=== PATIENT | male | born 1955 | race Caucasian/White ===

== ENCOUNTER 2018-09-27 08:58 | Day surgery (SDC) | payer OTHER, SELFPAY ==
[2018-09-12 12:12] VITALS: BMI 29.7
[2018-09-27] VITALS (13 sets, daily range): BP systolic 102–146; BP diastolic 59–81; PULSE 49–85; RESP 11–18; TEMP 36.2–36.4; O2SAT 96–100; BMI 29.7
--- NOTE | 2018-09-27 | DI.RAD.S_ITS ---
PROCEDURE: XR LUMBAR SPINE 1V INDICATIONS: LAMINECTOMY TECHNIQUE: Single lateral views of the lumbar spine were acquired. COMPARISON: None. FINDINGS: Bones: Operative evaluation, metallic probe overlies the inferior facet joint between L4 and L5. Soft tissues: Overlying bowel gas pattern is normal. No suspicious soft tissue calcifications. IMPRESSION: Successful L4-L5 disc level localization by metallic probe superimposed on the facet joint area of that axial region. Dictated by: John Hamilton M.D. on 09/27/2018 at 17:13 Approved by: John Hamilton M.D. on 09/27/2018 at 17:14
--- NOTE | 2018-09-27 10:42 | PM.PREOP ---
Pre-operative Note Interval Note History & Physical reviewed/Exam performed by Physician: Yes Changes to H&P: No
[2018-09-27] MEDS: LACTATED RINGERS 1,000 ML 42 ML IV ×2 (11:00→13:08)
[2018-09-27] MEDS: CEFAZOLIN 2 GM/100 ML FROZ.PIGGY IV ×2 (11:37→17:31)
--- NOTE | 2018-09-27 11:50 | SUR.OPER ---
Prone on spine table, head in foam head support, padded chest and pelvic supports, gel pad at knees, lower legs supported by pillows; nipples, genitalia and toes free of pressure, arms secured on foam padded arm boards at <90 degrees abduction. Tape over blanket at thigh secured to table.
[2018-09-27] MEDS: BUPIVACAINE 0.25% (PF) 8 ML, fentaNYL 100 MCG INJ (11:54)
[2018-09-27] MEDS: VANCOMYCIN 1,000 MG VIAL 1000 MG TOP (11:54)
[2018-09-27] MEDS: ACETAMINOPHEN IV 1,000 MG/100 ML VIAL 400 MG IV (11:55)
[2018-09-27] MEDS: SODIUM CHLORIDE 0.9% 1,000 ML, GENTAMICIN 80 MG IRR (11:56)
[2018-09-27] MEDS: THROMBIN (BOVINE) 5,000 UNIT VIAL 5000 UNIT TOP (12:00)
--- NOTE | 2018-09-27 13:02 | PM.OP.1 ---
Operative Date/Time/Diagnoses Date of procedure: 09/27/18 Time of procedure: 13:02 Pre-op diagnosis: Lumbar stenosis with radiculopathy Post-op diagnosis: same Procedure & Clinicians Procedure: L3-4, L4-5 laminectomy Placement of epidural catheter Use of microscope Same procedure as scheduled: Yes Indications: [age] year old male with intractable pain from stenosis. They had failed conservative management and requested operative intervention. Risks and benefits of surgery were discussed and appropriate consents were obtained. Surgeon: Christian Enriquez [employer] Logger: Elodia De Los Santos Anesthesia Type: General Operative Notes Findings: None Closure Type: primary Specimen(s): none sent Estimated Blood Loss (mL): 30 Blood products transfused: none Procedure in detail: Patient was brought to the operating room and intubated on the table. They were rolled over on the well-padded prone position on the Eric table. A time-out was performed. Preoperative antibiotics were given. The back was prepped and draped in standard sterile fashion. Using fluoroscopy for localization, a 5 cm incision was made in the midline. We used Bovie to dissect through the lumbodorsal fascia and then subperiosteally dissect the paraspinal muscles off the right side. A marker was placed and x-ray was taken to confirm positioning. We then brought in the microscope. A right-sided laminectomy was performed at L4-5 and L3-4. We carefully depressed the dura and reached across the midline to decompress the opposite side. The neural foramen were cleared out. At the end, we could reach with the ball probe cephalad and caudally across the midline and to the foramen and everything was opened. The wound was irrigated. An epidural catheter was prepared with 8 mL of 0.25% Marcaine and 100 mcg of fentanyl. The dura was carefully depressed and the catheter was advanced 6 cm cephalad underneath remaining lamina without resistance. The fascia was then closed in layers. The epidural catheter was injected without complications. Vancomycin powder was placed in the wound. The superficial and the skin were closed. Sterile dressing was placed. Patient was rolled over extubated brought to recovery room with no complications. Complications: none Condition: stable Disposition: PACU Plan for aftercare: Outpatient with bed. Possible discharge home tonight or tomorrow morning.
[2018-09-27] MEDS: ONDANSETRON 4 MG/2 ML INJ IV (13:30)
--- NOTE | 2018-09-27 13:35 | SUR.PHASEI ---
states nausea resolved.
[2018-09-27] MEDS: HYDROMORPHONE 2 MG INJ 0.5 MG IV ×2 (13:47→13:53)
--- NOTE | 2018-09-27 15:52 | PM.PNPO.1 ---
Subjective Date Patient Seen: 09/27/18 Time Patient Seen: 15:52 Interval history: Pain about 4/10 now, all in back. Leg feels good. Exam Vital Signs (past 8 hours): - 09/27/18 09:33 09/27/18 13:23 09/27/18 13:31 Temperature 97.1 F L 97.3 F L Pulse Rate 64 85 67 Respiratory Rate 18 18 12 Blood Pressure 146/80 H 118/72 125/77 Pulse Oximetry 99 99 99 09/27/18 13:37 09/27/18 13:43 09/27/18 13:51 Temperature 97.4 F L Pulse Rate 67 73 62 Respiratory Rate 12 15 11 L Blood Pressure 113/76 122/76 124/77 Pulse Oximetry 98 98 99 09/27/18 13:57 09/27/18 14:03 09/27/18 14:13 Temperature 97.3 F L Pulse Rate 57 L 60 60 Respiratory Rate 12 14 11 L Blood Pressure 121/79 132/71 102/63 Pulse Oximetry 100 100 100 Oxygen Delivery Method Room Air Const Orientation: alert and oriented x3 Back/Spine/Pelvis Other: 5/5 motor BLE Assessment & Plan Post-op Postoperative Procedures Operation Date: 09/27/18 11:15 Actual Procedures Side Surgeon p L3-4,L4-5 Laminectomy Christian Enriquez MD He's comfortable and thinks he wants to go home today. I will have PT work with him and we can make the decision after this.
[2018-09-27] MEDS: HYDROCODONE/ACET 5/325 TABLET 1 TAB PO ×2 (16:10→17:13)
[2018-09-27] MEDS: LACTATED RINGERS 1,000 ML 125 ML IV (16:10)
[2018-09-27] MEDS: KETOROLAC 30 MG/ML VIAL IV (17:12)
--- NOTE | 2018-09-27 17:37 | PC.NURSE ---
Addendum entered by Christal Epstein R.N. 09/27/18 21:11: 1930- IV removed catheter in tact, DC information, belongings, follow up appt, and Rx picked up by from pharmacy. Pt was admin one Ceftriaxone ABO, and 200mL LR prior to DC. VSS. wheeled to exit. Thankful for great care. Original Note: Pt awake and oriented x4. Pain 5-6/10, 1600-admin norco 5/325 1 of 2 tabs, then requested the other tab @ 1700, 1725- Ketorolac 30mg IVP, effective to 3-09/21. 97% RA, LS clear denies SOB. Incision to low back covered with gauze/tegaderm, CDI. BT + denies nausea, tolerating reg diet. Up with PT, ambulated throughout floor and stairs, PT signed off pt. Dr Enriquez in to see pt and ordered discharge for after dinner. , Roxy in room, bed alarm on for safety.
== END 2018-09-27 19:30 | disposition home or self-care (01) ==
LOC: OR 13:49 → AC 13:50
PROVIDERS: Visit Provider Orthopaedic Surgery
PROC: (CPT 63047; principal; 2018-09-27 11:15)
DX: M48.062 Spinal stenosis, lumbar region with neurogenic claudication (principal); M51.16 Intervertebral disc disorders with radiculopathy, lumbar region; S39.012A Strain of muscle, fascia and tendon of lower back, initial encounter; F17.210 Nicotine dependence, cigarettes, uncomplicated
CPT/HCPCS: 63047; 63048; 72020; 76000; 97110; 97161; J0131; J0690; J1100; J1170; J1885; J2405; J2704; J3010

== ENCOUNTER → 2023-09-09 06:59 | Outpatient (CLI) | payer MEDICARE, MEDICAID, SELFPAY ==
[2018-09-27 14:45] VITALS: BMI 29.7
[2023-08-20 08:00] VITALS: BMI 29.7
== END ==
PROVIDERS: PCP Physician Assistant; Referring Provider Internal Medicine Critical Care Medicine; Visit Provider Internal Medicine Critical Care Medicine
DX: J61 Pneumoconiosis due to asbestos and other mineral fibers (principal); J84.89 Other specified interstitial pulmonary diseases; J98.8 Other specified respiratory disorders; R06.02 Shortness of breath; Z87.891 Personal history of nicotine dependence
CPT/HCPCS: 94060; 94726; 94729; 99215

== ENCOUNTER → 2024-02-17 11:01 | Outpatient (CLI) | payer MEDICARE, MEDICAID, SELFPAY ==
[2023-08-20 08:00] VITALS: BMI 29.7
--- NOTE | 2024-02-17 11:02 | DI.RAD.S_ITS ---
PROCEDURE: XR CHEST 2V INDICATIONS: cough TECHNIQUE: 2 views of the chest were acquired. COMPARISON: [facility], CR, XR CHEST 2 VIEWS, 12/30/2023, 13:39. FINDINGS: Surgical changes and devices: None. Lungs and pleura: No focal lung consolidation. Basal predominant fibrosis and bronchiectasis. No pleural effusions or pneumothorax. Mediastinum: Mediastinal contours are normal. Heart size is normal. Bones and chest wall: Diffuse osseous demineralization. No suspicious bony abnormalities. Soft tissues appear unremarkable. IMPRESSION: No acute cardiothoracic process. Dictated by: Eduardo Alex M.D. on 02/17/2024 at 17:24 Approved by: Eduardo Alex M.D. on 02/17/2024 at 17:25
== END ==
PROVIDERS: PCP Physician Assistant; Referring Provider Internal Medicine Critical Care Medicine; Visit Provider Internal Medicine Critical Care Medicine
DX: J61 Pneumoconiosis due to asbestos and other mineral fibers (principal); J84.10 Pulmonary fibrosis, unspecified; J47.9 Bronchiectasis, uncomplicated
CPT/HCPCS: 71046

== ENCOUNTER → 2024-08-17 06:56 | Outpatient (CLI) | payer MEDICARE, MEDICAID, SELFPAY ==
[2023-08-20 08:00] VITALS: BMI 29.7
--- NOTE | 2024-08-17 06:57 | DI.CT.S_ITS ---
PROCEDURE: CT CHEST HIGH RESOLUTION INDICATIONS: ILD TECHNIQUE: Noncontrast 1.0 and 5.0 mm thick contiguous axial sections from the pulmonary apex to the posterior costophrenic angles, with 7 mm thick coronal and sagittal MIP reformats. 1 mm thick dynamic expiratory images acquired through the upper, mid, and lower lungs. 1.0 mm thick axial sections acquired from the jannette to the posterior costophrenic angles in the prone end-inspiration position. For radiation dose reduction, the following was used: automated exposure control, adjustment of mA and/or kV according to patient size. COMPARISON: None. FINDINGS: Image quality: Diagnostic. Lower Neck: No enlarged lymph nodes. Thyroid: No thyroid nodules which require sonographic follow up, per consensus guidelines. Axillae: No enlarged lymph nodes. Chest Wall: Unremarkable. Bones: Unremarkable. Lungs and Pleura: Basilar predominant peripheral reticulation with associated bronchiectasis. There is subpleural involvement and honeycombing. There has been slight interval progression compared with prior. New part solid nodule in the posterior left upper lobe measuring 1.9 x 1.6 centimeter (series 4, image 82). Stable pulmonary micro nodules, index nodule measuring 5 millimeter in the lingula (series 4, image 159). Heart: Heart size is normal. No pericardial effusion. Thoracic Vessels: Dilated pulmonary artery measuring 3.2 centimeter. Mediastinum and Di: No enlarged lymph nodes. Prominent mediastinal lymph nodes, likely reactive. Esophagus: No wall thickening. No hiatal hernia. Upper Abdomen: Visualized upper abdomen solid organs and bowel loops appear normal. IMPRESSION: Definite UIP pattern of interstitial lung disease, with progression from prior. New 1.9 x 1.7 centimeter part solid nodule in the left upper lobe. Recommend follow-up in 6 months. Dilated pulmonary artery, suggestive of pulmonary hypertension. Reactive mediastinal lymph nodes. Dictated by: Blake Hong M.D. on 08/17/2024 at 9:32 Approved by: Blake Hong M.D. on 08/17/2024 at 9:37
== END ==
PROVIDERS: PCP Physician Assistant; Referring Provider Internal Medicine Critical Care Medicine; Visit Provider Internal Medicine Critical Care Medicine
DX: J84.89 Other specified interstitial pulmonary diseases (principal); R91.8 Other nonspecific abnormal finding of lung field
CPT/HCPCS: 71250

== ENCOUNTER 2024-08-24 16:43 | Emergency (ER) | payer MEDICARE, MEDICAID, SELFPAY ==
[2023-08-20 08:00] VITALS: BMI 29.7
[2024-08-24] VITALS (10 sets, daily range): BP systolic 132–169; BP diastolic 71–82; PULSE 70–95; RESP 14–28; TEMP 37.1; O2SAT 95–99; BMI 25.5
--- NOTE | 2024-08-24 16:52 | DI.RAD.S_ITS ---
PROCEDURE: XR CHEST 1V INDICATIONS: chest pain TECHNIQUE: One view of the chest was acquired. COMPARISON: [facility], CR, XR CHEST 2V, 02/17/2024, 11:07. FINDINGS: Surgical changes and devices: None. Lungs and pleura: Lungs are clear. No pleural effusions or pneumothorax. Chronic interstitial changes. Mediastinum: Mediastinal contours appear normal. Heart size is normal. Bones and chest wall: No suspicious bony lesions. Overlying soft tissues appear unremarkable. IMPRESSION: Chronic interstitial changes without superimposed consolidation. Dictated by: Malena Amado M.D. on 08/24/2024 at 17:30 Approved by: Malena Amado M.D. on 08/24/2024 at 17:30
--- NOTE | 2024-08-24 16:56 | EKG_ITS ---
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
[2024-08-24 17:15] LABS: Add Manual Diff / Slide Review NO; Basophils Absolute Auto 0 /uL (0-100); Basophils Percent Auto 0.5 % (0-2); Eosinophils Absolute Auto 100 /uL (0-450); Eosinophils Percent Auto 1.1 % (2-4); Hematocrit 41.1 % (41-53); Lymphocytes Absolute Auto 1000 /uL (1100-4500); Lymphocytes Percent Auto 17.2 % (25-40); Mean Corpuscular HGB Conc 34.2 % (30-36); Mean Corpuscular Hemoglobin 31.4 PG (26-34); Mean Corpuscular Volume 91.8 fL (80-100); Monocytes Absolute Auto 500 /uL (0-900); Monocytes Percent Auto 7.7 % (3-14); Neutrophils Absolute Auto 4400 /uL (1500-7000); Neutrophils Percent Auto 73.5 % (50-75); Platelet Count 362 X10^3/uL (150-400); Red Blood Cell Count 4.47 X10^6/uL (4.5-5.9)
[2024-08-24 17:23] LABS: Prothrombin Time 11.7 SECONDS (9.4-12.5)
[2024-08-24 17:26] LABS: PTT Partial Thromboplastin Tim 36 SECONDS (25.1-36.5)
[2024-08-24 17:27] LABS: Alanine Aminotransferase 66 IU/L (<50); Albumin 4.2 g/dL (3.5-5.0); Albumin Globulin Ratio 1.3 (1.0-2.8); Alkaline Phosphatase 105 U/L (38-126); Aspartate Aminotransferase 42 IU/L (17-59); BUN Creatinine Ratio 11.1 (6-22); Bilirubin Total 0.7 mg/dL (0.2-1.3); Blood Urea Nitrogen 10 mg/dL (9-20); Calcium 9.2 mg/dL (8.4-10.2); Carbon Dioxide 23 mmol/L (22-32); Chloride 102 mmol/L (98-107); Creatine Kinase 51 U/L (55-170); Estimated Glomerular Filt Rate > 60 mL/min (>60); Globulin 3.3 g/dL (1.7-4.1); Glucose 118 mg/dL (80-110); HEMOLYSIS 16 (0-50); Lipase 96 U/L (23-300); Magnesium 2.1 mg/dL (1.6-2.3); Potassium 4.2 mmol/L (3.4-5.1); Sodium 134 mmol/L (137-145); Total Protein 7.5 g/dL (6.3-8.2)
[2024-08-24 17:39] LABS: NT-proBNP (BNP-Adult 18+) 283 pg/mL (<125); Troponin I 0.029 ng/mL (0.01-0.034)
--- NOTE | 2024-08-24 18:25 | ED.DIZZY ---
HPI - Dizziness General Chief Complaint: Dizziness Stated Complaint: lightheaded, coughing Time Seen by Provider: 08/24/24 17:21 Source: patient Mode of arrival: Ambulatory History of Present Illness HPI Narrative: patient is a 69-year-old male with a history of chronic interstitial lung disease hypertension GERD, comes into the ED from home for evaluation of persistent cough shortness of breath that has been ongoing persistent for the past 3 years. He states that he has a team foreman that he followed up with last week had a negative CTA and was told that he is having progression of his chronic interstitial lung disease. He presents with his because the states that every time he has his chronic coughing fits he ends up feeling lightheaded dizzy and states that he ends up almost blacking out. He states it has been ongoing persistent for several months states that they do have an appointment with their team foreman next week patient chronically on steroids and Bactrim. According to the and patient they are here only to see if they are able to obtain/qualify for oxygen. They understand the severity and progression of his chronic lung disease and are just requesting possible oxygen at home until they can follow up with their team foreman, Fat or if they could get documentation that he may need oxygen in the future. They state that they know that whenever he ambulates excessively/exerts himself he does get a transient hypoxia but with resolution without intervention. He denies any other symptoms such as headache visual disturbances chest pain fever chills nausea vomiting abdominal pain or any other GI/ symptoms at this time Related Data Home Medications Medication Instructions Recorded Confirmed acetaminophen 325 mg tablet 650 mg PO Q6H PRN Pain (Scale 09/27/18 07/27/24 (Tylenol) Score 4-6) amlodipine 5 mg tablet 5 mg PO DAILY 09/09/23 07/27/24 betamethasone valerate 0.1 % 1 applic topical DAILY PRN 09/09/23 07/27/24 topical cream famotidine 40 mg tablet 40 mg PO DAILY 09/09/23 07/27/24 fluoxetine 40 mg capsule 40 mg PO BID 09/09/23 07/27/24 fexofenadine 60 mg tablet (Elizabeth 60 mg PO Q12H 02/17/24 07/27/24 Allergy) bupropion HCl 150 mg tablet,12 hr 150 mg PO QAM 07/14/24 07/27/24 sustained-release (Wellbutrin SR) prednisone PO DAILY 07/27/24 07/27/24 Previous Rx's Medication Instructions Recorded guaifenesin 100 mg/5 mL oral 200 mg (10 mL) PO Q4H PRN cough 02/17/24 liquid (Expectorant Cough Syrup) #500 mL codeine 7.5 mg-guaifenesin 225 7.5 ml PO Q4-6H PRN cough #473 mL 02/22/24 mg/5 mL oral liquid pirfenidone 267 mg capsule See Rx Instructions PO .COMPLEX 07/27/24 (Esbriet) #60 caps prednisone 10 mg tablet 10 mg PO DAILY #90 tabs 07/27/24 sulfamethoxazole 800 1 tab PO 3XW #14 tabs 07/27/24 mg-trimethoprim 160 mg tablet (Bactrim DS) Allergies Allergy/AdvReac Type Severity Reaction Status Date / Time No Known Drug Allergies Allergy Verified 02/17/24 10:44 Review of Systems Review of Systems Narrative: General: Denies fever, chills, weight loss HEENT: Denies headache, eye drainage, eye irritation, head trauma, sore throat, voice change Cardiovascular: Denies any chest pain, palpitations, tachycardia Respiratory: positive cough, shortness of breath GI/: Denies any abdominal pain, nausea, vomiting, diarrhea, bright red blood per rectum, melanotic stools, urinary frequency, urinary retention, dysuria, hematuria MSK: Denies any joint pain, muscle pains, swelling Skin: Denies any rashes, lesions, discoloration Neuro: positive lightheadedness,Denies any headache, dizziness, fainting, weakness Psych: Denies SI/HI Patient History Medical History Lumbar scoliosis Paresthesias Carpal tunnel syndrome of left wrist Numbness and tingling Trigger thumb of left hand Seasonal allergies Back pain Surgical History Hx of tonsillectomy Social History household members: spouse Smoking Status: Former smoker alcohol intake: never Smoking Status: Former smoker tobacco type: cigarettes Exam Narrative Exam Narrative: General: Cooperative, comfortable, well-developed, not in acute distress HEENT: Normocephalic, atraumatic, PERRLA, normal sclera, eyelids normal, Neck: Active full range of motion, atraumatic Chest: Normal to inspection, negative crepitus, no overlying erythema ecchymosis Respiratory: patient coughing on exam, however not in acute respiratory distress not requiring any supplemental oxygen at baseline sitting in the stretcher Cardiology: Regular rate rhythm negative gallop, murmur, rubs GI/: Normal to inspection, soft, nonrigid, no tenderness to palpation, exam deferred MSK: Full range of active range of motion of all 4 extremities, atraumatic Skin: No rashes lesions noted Neuro: NIH of 0, no focal deficits Alert awake oriented x3, moves all 4 extremities spontaneously, cranial nerves intact, able to answer all questions appropriately follows commands appropriately Psych: Cooperative, negative suicidal or homicidal ideations Initial Vital Signs Initial Vital Signs: Vital Signs Temperature 98.7 F 08/24/24 16:48 Pulse Rate 95 H 08/24/24 16:48 Respiratory Rate 28 H 08/24/24 16:48 Blood Pressure 169/80 H 08/24/24 16:48 Pulse Oximetry 99 08/24/24 16:48 Oxygen Delivery Method Room Air 08/24/24 16:48 Course Orders Ordered: ED Orders 08/24/24 16:52 XR chest 1V Stat EKG-12 Lead Stat 08/24/24 17:05 Complete Blood Count AUTO DIFF Stat Comprehensive Metabolic Panel Stat Lipase Stat Magnesium Stat NT-proBNP (BNP-Adult 18+) Stat PTT Partial Thromboplastin Leobardo Stat Prothrombin Time INR Stat Troponin & CK Cardiac Panel Stat Discontinued Medications Aspirin (Aspirin 81 Mg Chew Tab) 324 mg PO NOW ONE Stop: 08/24/24 16:53 Vital Signs Vital signs: Vital Signs - 8 hr 08/24/24 16:48 Temperature 98.7 F Pulse Rate 95 H Respiratory Rate 28 H Blood Pressure 169/80 H Pulse Oximetry 99 Oxygen Delivery Method Room Air MDM - Dizziness Differential Diagnosis Differential diagnosis: Likely other ( ACS, pneumonia, electrolyte abnormality, chronic interstitial lung disease) Lab Data 08/24/24 17:05 08/24/24 17:05 Labs: Lab Results 08/24/24 Range/Units 17:05 WBC 6.0 (4.5-11.0) X10^3/uL RBC 4.47 L (4.5-5.9) X10^6/uL Hgb 14.0 (13.5-17.5) g/dL Hct 41.1 (41-53) % MCV 91.8 (80-100) fL MCH 31.4 (26-34) PG MCHC 34.2 (30-36) % RDW 13.0 (11.6-14.8) % Plt Count 362 (150-400) X10^3/uL Neut % (Auto) 73.5 (50-75) % Lymph % (Auto) 17.2 L (25-40) % [place] % (Auto) 7.7 (3-14) % Eos % (Auto) 1.1 L (2-4) % Baso % (Auto) 0.5 (0-2) % Neut # (Auto) 4400 (3130-0969) /uL Lymph # (Auto) 1000 L (0374-4513) /uL [place] # (Auto) 500 (0-900) /uL Eos # (Auto) 100 (0-450) /uL Baso # (Auto) 0 (0-100) /uL PT 11.7 (9.4-12.5) SECONDS INR 1.0 (0.9-1.3) APTT 36 (25.1-36.5) SECONDS Sodium 134 L (137-145) mmol/L Potassium 4.2 (3.4-5.1) mmol/L Chloride 102 (98-107) mmol/L Carbon Dioxide 23 (22-32) mmol/L BUN 10 (9-20) mg/dL Creatinine 0.90 (0.66-1.25) mg/dL Estimated GFR > 60 (>60) mL/min BUN/Creatinine Ratio 11.1 (6-22) Glucose 118 H (80-110) mg/dL Calcium 9.2 (8.4-10.2) mg/dL Magnesium 2.1 (1.6-2.3) mg/dL Total Bilirubin 0.7 (0.2-1.3) mg/dL AST 42 (17-59) IU/L ALT 66 H (<50) IU/L Alkaline Phosphatase 105 (38-126) U/L Total Creatine Kinase 51 L (55-170) U/L Troponin I 0.029 (0.01-0.034) ng/mL NT-Pro-B Natriuret Pep 283 H (<125) pg/mL Total Protein 7.5 (6.3-8.2) g/dL Albumin 4.2 (3.5-5.0) g/dL Globulin 3.3 (1.7-4.1) g/dL Albumin/Globulin Ratio 1.3 (1.0-2.8) Lipase 96 (23-300) U/L Imaging Data Chest x-ray: Radiologist's Impression: [address] [address] XRay Report Signed Patient: Satinder Ravi MR#: [id number] : 1955 Acct:[id number] Age/Sex: 69 / M Date of Service: 08/24/24 Loc: ED Accession Number: [id number] Procedure: XR chest 1V Ordering Provider: Akanksha Murray MD PROCEDURE: XR CHEST 1V INDICATIONS: chest pain TECHNIQUE: One view of the chest was acquired. COMPARISON: [facility], , XR CHEST 2V, 02/17/2024, 11:07. FINDINGS: Surgical changes and devices: None. Lungs and pleura: Lungs are clear. No pleural effusions or pneumothorax. Chronic interstitial changes. Mediastinum: Mediastinal contours appear normal. Heart size is normal. Bones and chest wall: No suspicious bony lesions. Overlying soft tissues appear unremarkable. IMPRESSION: Chronic interstitial changes without superimposed consolidation. ECG Data Interpretation: EKG interpreted by ED physician sinus 84 beats per minute QTC 420 normal axis left axis deviation no STEMI MDM Narrative Medical decision making narrative: 69-year-old male with a history of pulmonary asbestosis with interstitial lung disease hypertension GERD comes into the ED from home for evaluation of persistent cough shortness of breath and possible need for oxygen. They state that patient has been having these symptoms ongoing persistent for the past 3 years due to his chronic interstitial lung disease that is progressing. If they state that they visited their team foreman last week and had CT scan performed which showed progression of his disease, they present because patient is having worsening symptoms and states that the coughing fit is getting worse/ his intermittent hypoxia is increasing. They state that he has known history of intermittent hypoxia with standing/ exertion with improvement without intervention. They state that they presented here to see if they could obtain oxygen for home. They do have an appointment with her team foreman next week to see if this is possible but the states that she feels like he might need this sooner. On exam patient coughing but not in acute respiratory distress patient not requiring supplemental oxygen at baseline however with ambulation patient did have a very brief transient hypoxia event of 82% with improvement / resolution without intervention of oxygen. Patient not complaining of any actual chest pain headache visual disturbances fever chills nausea vomiting abdominal pain or any other GI / symptoms time. EKG nonischemic chest x-ray without any consolidation lab work otherwise unremarkable I did offer patient and family evaluation of PT OT here in the morning for evaluation given his transient hypoxia however they state that they would rather go home and contact her team foreman to try to obtain oxygen at home. They state they do not want to be admitted to the hospital they state that they want to go home and they just want oxygen for him at home as needed. Discharge Plan Departure Patient Disposition: Home Clinical Impression: Shortness of breath Activity Restrictions/Additional Instructions: please follow up with your team foreman for your scheduled appointment to possibly obtain oxygen at home as requested. during ambulation trial here you did have a short transient hypoxemia event to 82% with resolution without intervention. please return to the emergency department if you have worsening symptoms Please read the discharge instructions sheet carefully and bring all papers to all doctor follow-up visits, as it may contain information that your doctor may want to see. Disease processes change and evolve, if your symptoms worsen or if you develop any new symptoms that are concerning to you please return for evaluation. Your evaluation today does not show any evidence of any life-threatening/serious illnesses requiring admission to the hospital or surgery. Please follow-up with your doctor for re-evaluation in approximately 1 day. Seek immediate medical attention for any worrisome symptoms. *If you do not have a primary care provider please contact the [facility] Resource line at [phone]. They will ask some questions about your medical history and help get you set up with a doctor in the community. Prescriptions: No Action codeine-guaifenesin 7.5-225 mg/5 mL liquid 7.5 ml PO Q4-6H PRN (Reason: cough) Qty: 473 0RF acetaminophen [Tylenol] 325 mg Tablet 650 mg PO Q6H MDD 1000 mg PRN (Reason: Pain (Scale Score 4-6)) amlodipine 5 mg tablet 5 mg PO DAILY betamethasone valerate 0.1 % cream 1 applic topical DAILY PRN famotidine 40 mg tablet 40 mg PO DAILY fluoxetine 40 mg capsule 40 mg PO BID Rx Instructions: administer in the morning and at noon/midday fexofenadine [Elizabeth Allergy] 60 mg tablet 60 mg PO Q12H guaifenesin [Expectorant Cough Syrup] 100 mg/5 mL liquid 200 mg PO Q4H PRN (Reason: cough) Qty: 500 1RF prednisone PO DAILY Rx Instructions: 40mg daily sulfamethoxazole-trimethoprim [Bactrim DS] 800-160 mg tablet 1 tab PO 3XW Qty: 14 0RF prednisone 10 mg tablet 10 mg PO DAILY Qty: 90 0RF Rx Instructions: Take 4 tabs daily for one week then 3 tabs daily for 1 week then 2 tabs daily for one week then continue on 10 mg daily. pirfenidone [Esbriet] 267 mg capsule See Rx Instructions PO .COMPLEX Qty: 60 1RF Rx Instructions: take 1 capsule 3 times daily for 7 days; 2 capsules 3 times daily for 7 days, then 3 capsules 3 times daily. PO bupropion HCl [Wellbutrin SR] 150 mg tablet sustained-release 12 hr 150 mg PO QAM Referrals: Keyla Hill PA-C [Primary Care Provider] - Stand Alone Forms: Patient Portal/API/Survey
--- NOTE | 2024-08-24 19:50 | PC.NURSE ---
pt ambulated around the nurses station, pt became tachypneic and started coughing having to stop along the way d/t the coughing pt O2 sat dropped to 89% Dr Delgado notified.
== END 2024-08-24 20:10 | disposition home or self-care (01) ==
PROVIDERS: Emergency Medicine; Emergency Provider Student in an Organized Health Care Education/Training Program; PCP Physician Assistant
DX: R06.02 Shortness of breath (principal); R07.9 Chest pain, unspecified
CPT/HCPCS: 36415; 71045; 80053; 82550; 83690; 83735; 83880; 84484; 85025; 85610; 85730; 93005; 99283; 99284